=== PATIENT | female | born 1955 | race Native Hawaiian/Other Pacific Islander ===

== ENCOUNTER → 2017-08-29 | Outpatient (CLI) | payer MEDICARE, MEDICAID ==
[~2017-08-29] MED LIST: ACAR100T2 PO; ACET-784 PO; ASPI-825 PO; B CO1CAP4 PO; CARV25 PO; ISOS1TAB2 PO; LOSA50TA37 PO; METR250 PO; NIFE60TA85 PO; ROSU10 PO; SAXA2.5T PO; SEVEC800 PO; VIT D3 PO
== END | disposition home or self-care (01) ==
LOC: RADPV 12:20
PROVIDERS: ATTEND Internal Medicine Cardiovascular Disease
DX: I08.0 Rheumatic disorders of both mitral and aortic valves (principal); I25.10 Atherosclerotic heart disease of native coronary artery without angina pectoris
CPT/HCPCS: 93306

== ENCOUNTER 2018-02-08 06:52 | Emergency (ER) | payer MEDICARE, MEDICAID ==
[~2018-02-08] VITALS: Ht 149.9 cm; Wt 59.9 kg
[~2018-02-08 06:52] MED LIST changes: -ACAR100T2 PO; +ACET-66 PO; -ACET-784 PO; +AMLO-512 PO; -B CO1CAP4 PO; +CLON-570 PO; +DOCU250C91 PO; +FOLI0.8T22 PO; +GABA-529 PO; +HYDR-2924 PO; -ISOS1TAB2 PO; +ISOS60TA4 PO; +LINA5TAB PO; +LORA10TA7 PO; -METR250 PO; -NIFE60TA85 PO; +NITR.4 SL; +PANT40TA25 PO; +PHOSLOC PO; -ROSU10 PO; +ROSU20 PO; -SAXA2.5T PO; -SEVEC800 PO; +TICA60TA PO; -VIT D3 PO; +VITAD1000 PO
[2018-02-08 07:42] LABS: GLUCOSE,POINT OF CARE 107 MG/DL (70-110)
[2018-02-08 08:43] LABS: BASOPHILS % (AUTO) 0.8 % (0.0-2.0); EOSINOPHILS % (AUTO) 2.3 % (1.0-6.0); HEMATOCRIT 31.1 % (36-46); HEMOGLOBIN 10.5 g/dL (12.0-16.0); LYMPHOCYTES # (AUTO) 0.7 K/uL (1.0-4.8); LYMPHOCYTES % (AUTO) 14.5 % (22.0-44.0); MEAN CORPUSCULAR HEMOGLOBIN 31.7 pg (26.0-34.0); MEAN CORPUSCULAR HGB CONC 33.7 G/dL (31.0-37.0); MEAN CORPUSCULAR VOLUME 94 fL (80-100); MONOCYTES # (AUTO) 0.4 K/uL (0.1-1.0); MONOCYTES % (AUTO) 7.3 % (2.0-9.0); NEUTROPHILS # (AUTO) 3.7 K/uL (1.8-7.7); NEUTROPHILS % (AUTO) 75.1 % (40.0-70.0); PLATELET COUNT (AUTO) 136 K/uL (150-450); RED BLOOD CELL COUNT(AUTO) 3.31 MIL/uL (4.00-5.20); RED CELL DISTRIBUTION WIDTH 17.7 % (11.5-14.5)
[2018-02-08 08:55] LABS: CALCIUM, TOTAL 8.6 mg/dL (8.8-10.5); CREATININE 7.26 mg/dL (0.60-1.30); POTASSIUM 4.4 mmol/L (3.5-5.1)
[2018-02-08 09:08] LABS: ALBUMIN 3.4 g/dL (3.4-5.0); BILIRUBIN,TOTAL 0.4 mg/dL (0.1-1.0); TOTAL PROTEIN, SERUM 7.1 g/dL (6.4-8.2)
[2018-02-08] MEDS ORDERED: LABETALOL HCL 5 MG/ML 20 ML VIAL IVP ONE (10:00)
[2018-02-08] MEDS ORDERED: HydrALAZINE HCL 20 MG/ML VIAL IVP ONE (10:45)
[2018-02-08 13:01] VITALS: BP 163/61
== END 2018-02-08 12:32 | disposition home or self-care (01) ==
LOC: EMS 06:53
DX: R42 Dizziness and giddiness (principal); I12.0 Hypertensive chronic kidney disease with stage 5 chronic kidney disease or end stage renal disease; N18.6 End stage renal disease; E11.22 Type 2 diabetes mellitus with diabetic chronic kidney disease; E78.00 Pure hypercholesterolemia, unspecified; J90 Pleural effusion, not elsewhere classified; R06.00 Dyspnea, unspecified; Z79.82 Long term (current) use of aspirin; Z99.2 Dependence on renal dialysis; Z79.899 Other long term (current) drug therapy
CPT/HCPCS: 36415; 70450; 71045; 80053; 82962; 83880; 84484; 85025; 93005; 96374; 96375; 99285; J0360; J3490

== ENCOUNTER → 2018-05-05 | Outpatient (CLI) | payer MEDICARE, MEDICAID ==
[~2018-05-05] VITALS: Ht 149.9 cm; Wt 58.5 kg
[2018-05-05 10:10] VITALS: BP 177/78
== END | disposition home or self-care (01) ==
LOC: SRCNTR 10:00
PROVIDERS: ATTEND Internal Medicine Cardiovascular Disease
DX: I25.10 Atherosclerotic heart disease of native coronary artery without angina pectoris (principal); B37.81 Candidal esophagitis; I13.2 Hypertensive heart and chronic kidney disease with heart failure and with stage 5 chronic kidney disease, or end stage renal disease; E11.22 Type 2 diabetes mellitus with diabetic chronic kidney disease; N18.5 Chronic kidney disease, stage 5; I50.9 Heart failure, unspecified; E78.5 Hyperlipidemia, unspecified; D53.9 Nutritional anemia, unspecified; F32.9 Major depressive disorder, single episode, unspecified; E78.00 Pure hypercholesterolemia, unspecified; K21.9 Gastro-esophageal reflux disease without esophagitis; Z72.0 Tobacco use; Z98.61 Coronary angioplasty status
CPT/HCPCS: G0463

== ENCOUNTER → 2018-06-16 | Outpatient (CLI) | payer MEDICARE, MEDICAID ==
[~2018-06-16] VITALS: Ht 149.9 cm; Wt 61.0 kg
[~2018-06-16] MED LIST changes: +LOSA50TA25 PO; -LOSA50TA37 PO
[2018-06-16 09:14] VITALS: BP 160/50
== END | disposition home or self-care (01) ==
LOC: SRCNTR 09:03
PROVIDERS: ATTEND Internal Medicine Cardiovascular Disease
DX: I13.2 Hypertensive heart and chronic kidney disease with heart failure and with stage 5 chronic kidney disease, or end stage renal disease (principal); N18.6 End stage renal disease; I50.9 Heart failure, unspecified; I25.10 Atherosclerotic heart disease of native coronary artery without angina pectoris; E11.51 Type 2 diabetes mellitus with diabetic peripheral angiopathy without gangrene; K21.9 Gastro-esophageal reflux disease without esophagitis; E78.00 Pure hypercholesterolemia, unspecified
CPT/HCPCS: G0463